=== PATIENT | female | born 1955 | race Caucasian/White ===

== ENCOUNTER 2017-06-20 07:39 | Day surgery (SDC) | payer OTHER ==
[~2017-06-20 07:39] MED LIST: Z.0.NO CURRENT MEDS
[2017-06-20] MEDS ORDERED: KETOROLAC TROMETHAMINE 30 MG/ML (IVP) VIAL IV PUSH ONE (07:40)
[2017-06-20] MEDS ORDERED: PROPOFOL 200 MG/20 ML AMP IV ONE (07:40)
[2017-06-20] MEDS ORDERED: ONDANSETRON HCL 4 MG/2 ML VIAL IV PUSH ONE (07:40)
[2017-06-20] MEDS ORDERED: ceFAZolin 2 GM PREMIX 50 ML ONE (08:18)
[2017-06-20] MEDS ORDERED: LACTATED RINGER'S 1000 ML INJ 1,000 ML ONE (08:18)
[2017-06-20] MEDS ORDERED: ACETAMINOPHEN 1000 MG/100 ML 100 ML IV ONE (08:19)
[2017-06-20] MEDS ORDERED: BUPIVACAINE/EPINEPHRINE 0.5% PF 30 ML VIAL ONE (09:12)
[2017-06-20] MEDS ORDERED: MIDAZOLAM HCL 2 MG/2 ML VIAL ONE (09:37)
[2017-06-20] MEDS ORDERED: BUPIVACAINE LIPOSOME PF 1.3% 20 ML VIAL ONE (11:29)
[2017-06-20] MEDS ORDERED: MEPERIDINE HCL 25 MG/ML VIAL ONE (12:48)
--- NOTE | 2017-06-20 13:23 | PD.OP ---
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 The adhesions were relatively filmy but there was no access to the peritoneal cavity with normal laparoscopic techniques. The right upper quadrant was relatively free of adhesions and the gallbladder appeared to be moderately thick-walled but did not have any adhesions to any viscera around it. No other abnormalities were noted. Operative procedure: The patient was brought to the operating room and after satisfactory general endotracheal anesthesia obtained, the abdomen was prepped and draped in the usual sterile fashion. The colostomy bag was prepped out of the wound area. Due to the patient's body habitus and the position of the colostomy was necessary to attempt entrance into the perineal cavity through the previous transverse incision. Accordingly 1.3% Exparel was infiltrated in the skin for local anesthesia and a small incision was made in the previous 1 and carried down bluntly to the fascia which was incised sharply. The peritoneal cavity was entered bluntly with care being taken not to injure the underlying viscera. The bowel was seen to be grossly adherent to the surrounding tissues and enough of it was freed to allow insertion of a trocar. The 12 mm GelPort was carefully inserted in the peritoneal cavity with the balloon and being engaged. Insufflation was attempted but despite proper placement of the trocar into the area of access, no insufflation to take place. At that point the attempted laparoscopy was abandoned due to the dense adhesions even superiorly as well as medially to the area of access. It was noted prior to closure of the fascia that there was a small serosal tear in the small intestine in the area with no breach of the lumen. This serosal tear was closed with 2 separate interrupted seromuscular sutures of 3-0 Vicryl with good result. The fascia was then closed with interrupted 0 Vicryls and the wound packed with a sterile lap pad soaked in saline. Attention was then turned to performing open cholecystectomy. The skin incision was made in the right upper quadrant carried down sharply through the subcutaneous tissue with cautery being used for hemostasis. The incision was deepened to the anterior rectus sheath which was divided with the cautery. The muscle was also divided with the cautery and the posterior sheath and peritoneum were tented and incised with care being taken not to injure the underlying viscera. The incision was then opened the entire length and at this point was noted that there was a flattened piece of intestine that was densely adherent to the fascia at the lateral border of the incision, and an enterotomy of approximately 3 cm length was noted in the transverse fashion. The bowel was freed by taking down adhesions by sharp dissection without problem. Once the loop of bowel was completely freed it was brought closer within the wound. There was no gross contamination noted. The bowel was closed transversely with an inner layer of seromuscular mucosal using interrupted 3-0 Vicryl sutures. A second layer of seromuscular sutures using 3-0 Vicryl were placed in order to protect the initial layer. There is seen to be a good lumen by palpation. There is no evidence of compromise of the surrounding tissues. The intestine was then placed back within the peritoneal cavity. The gallbladder was identified without problem and lap pads were placed around it with proper retractors. The fundus of the gallbladder was grasped with a Nani clamp and the Valverde's pouch area grasped with a sponge stick. The gallbladder was dissected free from a few filmy adhesions near Valverde's pouch using blunt dissection. The cystic artery and cystic duct were then dissected free using peanut dissectors to obtain the critical view. Both structures were completely isolated using a right angle dissector. There were then clipped several times and then once near the gallbladder after which they were both divided sharply. The gallbladder was then dissected free from the liver bed using the cautery and sent for permanent pathology. The liver bed was inspected and found to be hemostatic. The cystic duct and cystic artery stumps were both seen to be intact with no leakage of bile or blood. The area was irrigated copiously with saline after which the repaired intestine was checked and found to be intact with no evidence of contamination or compromise of the tissues. Irrigation was carried out in that area as well. The fascia was then closed in 2 separate layers using running 0 Vicryl suture. Irrigation was carried out with saline in between the layers and after the anterior fascia was closed wound was irrigated copiously with saline. The skin was then closed with a running 4-0 PDS subcuticular stitch. The inferior incision for the laparoscopy was closed with interrupted 4-0 PDS subcuticular stitches. Steri- Strips were applied to both incisions and patient was then awakened and taken from the operating room, in satisfactory condition, having tolerated the procedure without problem. Estimated blood loss was less than 20 mL's. The instrument, sponge, needle counts were reported as being correct 2 at the end of the procedure. Ang Coronado MD June 20, 2017 13:23
== END 2017-06-20 15:00 | disposition short-term general hospital (02) ==
LOC: ESDC 07:39
PROVIDERS: ATTEND Surgery
DX: K80.10 Calculus of gallbladder with chronic cholecystitis without obstruction (principal); Z53.31 Laparoscopic surgical procedure converted to open procedure
CPT/HCPCS: 00790; 44025; 47600; 88304; C9290; J0131; J0690; J1885; J2175; J2250; J2405; J3010; J7120

== ENCOUNTER 2017-06-20 15:17 | Observation (INO) | END 2017-06-22 13:37 | disposition home or self-care (01) | DX: K80.10 Calculus of gallbladder with chronic cholecystitis without obstruction (principal); Z53.31 Laparoscopic surgical procedure converted to open procedure ==